=== PATIENT | female | born 1960 | race Caucasian/White ===

== ENCOUNTER 2024-08-11 11:33 | Outpatient (CLI) | payer OTHER | END 2024-08-11 11:34 | disposition home or self-care (01) | LOC: BICMAMMO 11:33 | PROVIDERS: ATTEND Nurse Practitioner Family | DX: Z12.31 Encounter for screening mammogram for malignant neoplasm of breast (principal); N64.89 Other specified disorders of breast | CPT/HCPCS: 77063; 77067 ==

== ENCOUNTER 2024-09-19 08:34 | Outpatient (CLI) | payer OTHER | END 2024-09-19 08:35 | disposition home or self-care (01) | LOC: BICMAMMO 08:34 | PROVIDERS: ATTEND Nurse Practitioner Family | DX: N64.89 Other specified disorders of breast (principal) | CPT/HCPCS: G0279 ==

== ENCOUNTER 2024-09-19 09:09 | Outpatient (CLI) | payer OTHER | END 2024-09-19 09:10 | disposition home or self-care (01) | LOC: BICCT 09:09 | PROVIDERS: ATTEND Specialist | DX: J34.2 Deviated nasal septum (principal) ==

== ENCOUNTER 2024-11-09 08:19 | Outpatient (CLI) | payer OTHER | END 2024-11-09 08:20 | disposition home or self-care (01) | LOC: BICRAD 08:19 | PROVIDERS: ATTEND Nurse Practitioner Family | DX: M25.561 Pain in right knee (principal); M25.562 Pain in left knee; M25.552 Pain in left hip; W19.XXXA Unspecified fall, initial encounter; M17.12 Unilateral primary osteoarthritis, left knee; M17.11 Unilateral primary osteoarthritis, right knee ==

== ENCOUNTER 2025-07-19 14:30 | Emergency (ER) | payer MEDICARE, MEDICAID | END 2025-07-19 16:16 | disposition home or self-care (01) | LOC: ERS 14:30 | DX: L03.116 Cellulitis of left lower limb (principal) | CPT/HCPCS: 99282 ==